=== PATIENT | female | born 1965 ===

== ENCOUNTER 2021-06-16 08:18 | Outpatient (CLI) | payer OTHER ==
[~2021-06-16 08:18] MED LIST: ANTIVERT25 M1 PO; SEPTRA DS TABLE1 TAB PO
== END 2021-06-16 08:22 | disposition home or self-care (01) ==
LOC: NUCLEAR 08:18
PROVIDERS: ATTEND Internal Medicine Cardiovascular Disease
DX: I35.0 Nonrheumatic aortic (valve) stenosis (principal)